=== PATIENT | female | born 1975 | race Two or more races ===

== ENCOUNTER 2016-06-10 06:40 | Emergency (ER) | payer MEDICAID ==
[2016-06-10 06:47] VITALS: BP 117/89; PULSE 84; RESP 20; TEMP 97.7; O2SAT 96
--- NOTE | 2016-06-10 07:12 | EDPHY ---
H & P Time Seen by Provider: 06/10/16 07:11 HPI/ROS: Chief complaint. Cough and congestion HPI. Patient is a 41-year-old female with productive cough and chest congestion for 2 weeks. Slight shortness of breath. No chest discomfort. Nasal and ear congestion. Slight sore throat. Exposure to sick contacts in family 2 of whom have new had pneumonia. 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 No history of lung problems. Unknown fever as the patient takes ibuprofen cyst every 6 hours for chronic knee pain. No abdominal pain vomiting or diarrhea ROS Constitutional. no fever/chills, no weakness Eyes. no problems with vision ENT. Congestion Cardiovascular. no chest pain Respiratory. Slight shortness of breath and cough Abdominal. no abdominal pain, no nausea/vomiting, no diarrhea . no problems urinating MS. no calf pain/swelling, no neck/back pain, no joint pain Skin. no rash Lymph. no swollen glands Neuro. no headache, no dizziness, no difficulty walking or with speech Past Medical/Surgical History: Chronic knee pain Social History: Single, nonsmoker, no alcohol Smoking Status: Never smoked Physical Exam: General Appearance: Alert pleasant well-developed female mild distress vital signs stable Eyes: Pupils equal and round no pallor or injection. ENT, tympanic membranes normal. Pharynx slightly injected without exudate Respiratory: No retractions. Mild inspiratory expiratory rhonchi Cardiovascular: Regular rate and rhythm. Gastrointestinal: Abdomen is soft and nontender, no masses, bowel sounds normal. Neurological: Awake and alert, sensory and motor exams grossly normal. Skin: Warm and dry, no rashes. Musculoskeletal: Neck is supple nontender. Extremities symmetrical, full range of motion. Psychiatric: Patient is oriented X 3, there is no agitation. Constitutional: Initial Vital Signs Temperature (C) 36.5 C 06/10/16 06:44 Heart Rate 84 06/10/16 06:44 Respiratory Rate 20 06/10/16 06:44 Blood Pressure 117/89 H 06/10/16 06:44 O2 Sat (%) 96 06/10/16 06:44 O2 Delivery Mode Room Air Allergies/Adverse Reactions: No Known Allergies Allergy (Unverified 06/10/16 06:44) Home Medications: Medication Instructions Recorded Azithromycin [Zithromax] 250 mg PO DAILY #6 tab 06/10/16 HYDROcodone/HOMATROPINE HYCODA 1 tsp PO Q4-6PRN PRN #100 ml 06/10/16 [Hycodan Syrup (*)] Medical Decision Making - Diagnostics Imaging: Two view chest x-ray interpreted by me is consistent with bronchitis. No evidence for pneumonia ED Course/Re-evaluation: On re-evaluation patient remains stable. The patient and I discussed imaging study results, treatment plan including criteria for return and importance of follow-up and further evaluation. She expresses understanding and agreement Differential Diagnosis: I considered viral versus bacterial illness. I considered pneumonia versus bronchitis sources otitis media and pharyngitis Departure - Departure Disposition: Home, Routine, Self-Care Clinical Impression: Acute bronchitis Qualifiers: Bronchitis organism: unspecified organism Qualified Code(s): J20.9 - Acute bronchitis, unspecified Condition: Good Instructions: Acute Bronchitis (ED) Additional Instructions: Drink plenty of fluids and stay hydrated. Get plenty of rest as much as possible. Continue ibuprofen for fever. Hycodan syrup for cough. Zithromax is antibiotic. Return for worsening symptoms. Re-evaluation in 3-4 days if not improving Referrals: Nikolay Smith MD [Primary Care Provider] - 3-4 days, if not improved Stand Alone Forms: Work Excuse Prescriptions: Azithromycin [Zithromax] 250 mg PO DAILY #6 tab HYDROcodone/HOMATROPINE HYCODA [Hycodan Syrup (*)] 1 tsp PO Q4-6PRN PRN #100 ml PRN Reason: Cough, Moderate
== END 2016-06-10 07:30 | disposition home or self-care (01) ==
DX: J20.9 Acute bronchitis, unspecified (principal)

== ENCOUNTER 2016-12-25 17:57 | Emergency (ER) | payer MEDICAID ==
--- NOTE | 2016-12-25 18:58 | EDPHY ---
H & P Time Seen by Provider: 12/25/16 18:50 HPI/ROS: CHIEF COMPLAINT: Bilateral knee pain right greater than left HISTORY OF PRESENT ILLNESS: Patient is had knee pain for more than 12 years, osteoarthritis and has seen orthopedic surgeons in the past for possible knee replacement. She presents with right knee pain worse for the last 2 weeks. It is worse with movement or weight-bearing. REVIEW OF SYSTEMS: No weakness or numbness and foot. Also has some pain in her left knee. No hip or ankle symptoms. No recent injury or trauma. No skin changes or fever or chills. No chest pain or shortness of breath. PAST MEDICAL HISTORY: Osteoarthritis and previous right knee surgery Social history: Currently working, has Medicaid General Appearance: Alert and conversant, cooperative. Left knee has normal range of motion. A little bit of joint line tenderness medially. Stable to varus and valgus stress. No effusion. No bony tenderness and negative Veronica's. Distal foot is neurovascular intact. Right knee flexed at 90 in full extension but a little bit limited with pain. Pain on the medial joint line with valgus stress and palpation. No effusion. Stable to anterior and posterior drawer. No bony tenderness and Veronica's negative. Distally neurovascular intact. Emergency Department course/MDM: Plan for pain medication, brace, orthopedic referral. Patient presents with worsening of chronic knee pain. The history and physical exam does not suggest that it is likely that she has an acute fracture or new emergent medical or surgical conditions such as vascular occlusion or DVT or infection or compartment syndrome. Smoking Status: Never smoked Constitutional: Initial Vital Signs Temperature (C) 36.7 C 12/25/16 18:01 Heart Rate 72 12/25/16 18:01 Respiratory Rate 16 12/25/16 18:01 Blood Pressure 118/89 H 12/25/16 18:01 O2 Sat (%) 99 12/25/16 18:01 O2 Delivery Mode Room Air Allergies/Adverse Reactions: No Known Allergies Allergy (Verified 12/25/16 18:00) Home Medications: Medication Instructions Recorded oxyCODONE HCL [Oxycodone HCl] 5 mg PO Q8 PRN #11 tablet 12/25/16 MDM/Departure - Depart Disposition: Home, Routine, Self-Care Clinical Impression: Osteoarthritis of right knee Qualifiers: Osteoarthritis type: unspecified Qualified Code(s): M17.11 - Unilateral primary osteoarthritis, right knee Condition: Good Instructions: Knee Pain (ED) Additional Instructions: Ibuprofen 600 mg every 8 hours by mouth as needed for pain for the next week. Please call [facility] to arrange orthopedic follow-up. You can try also directly with our orthopedic referral. Prescriptions: oxyCODONE HCL [Oxycodone HCl] 5 mg PO Q8 PRN #11 tablet PRN Reason: knee pain Referrals: [facility],. [Clinic] - As per Instructions Yoni Grey MD [Medical Doctor] - As per Instructions
[2016-12-25 19:10] VITALS: BP 124/62; PULSE 63; RESP 18; TEMP 97.7; O2SAT 96
== END 2016-12-25 19:15 | disposition home or self-care (01) ==
DX: M17.11 Unilateral primary osteoarthritis, right knee (principal)
CPT/HCPCS: L1830

== ENCOUNTER → 2017-01-06 | Outpatient (CLI) | payer MEDICAID | LOC: BMCIMAGING 08:24 | PROVIDERS: ATTEND Orthopaedic Surgery | DX: M25.861 Other specified joint disorders, right knee (principal) ==